=== PATIENT | male | born 1945 | race Caucasian/White ===

== ENCOUNTER 2022-09-18 17:12 | Emergency (ER) | payer BC, MEDICARE ==
[~2022-09-18] VITALS: Ht 167.6 cm; Wt 78.0 kg
[2022-09-18 17:22] VITALS: BP 152/65
[2022-09-18] MEDS ORDERED: TETANUS, DIPHTHERIA, PERTUSSIS VAC/PF 0.5ML (>10YR OLD) IM ONE (18:15)
[2022-09-18] MEDS ORDERED: BACITRACIN ZINC OINT UDPKT TOP ONE (18:15)
[2022-09-18] MEDS ORDERED: LIDOCAINE HCL/PF 1% 10 MG/ML 5ML VIAL INFIL ONE (18:15)
[2022-09-18] MEDS ORDERED: CEPH500C2 MT (19:43)
[2022-09-18] MEDS ORDERED: BACITRACIN ZINC OINT UDPKT TOP NR (20:00)
== END 2022-09-18 20:02 | disposition home or self-care (01) ==
LOC: ER 17:12
DX: S51.812A Laceration without foreign body of left forearm, initial encounter (principal); W22.8XXA Striking against or struck by other objects, initial encounter; Y93.G3 Activity, cooking and baking; Y92.010 Kitchen of single-family (private) house as the place of occurrence of the external cause
CPT/HCPCS: 12004; 90471; 90715; 99283

== ENCOUNTER 2023-11-27 14:19 | Emergency (ER) | payer SELFPAY ==
[~2023-11-27] VITALS: Ht 167.6 cm; Wt 87.0 kg
[~2023-11-27 14:19] MED LIST: CEPH500C2 MT
[2023-11-27 14:27] VITALS: O2SAT 96
[2023-11-27] MEDS ORDERED: ACETAMINOPHEN 325MG TABLET PO ONE (15:15)
[2023-11-27] MEDS ORDERED: NAPR-1176 MT (16:42)
[2023-11-27 17:35] VITALS: BP 124/67; PULSE 80; RESP 18; TEMP 98
== END 2023-11-27 17:36 | disposition home or self-care (01) ==
LOC: ER 14:19
DX: M25.562 Pain in left knee (principal); V99.XXXA Unspecified transport accident, initial encounter; Y93.89 Activity, other specified; Y92.89 Other specified places as the place of occurrence of the external cause; Y99.8 Other external cause status; M19.90 Unspecified osteoarthritis, unspecified site; E11.9 Type 2 diabetes mellitus without complications; I10 Essential (primary) hypertension
CPT/HCPCS: 73562; 99283